=== PATIENT | female | born 1995 | race Caucasian/White ===

== ENCOUNTER 2024-05-17 14:31 | Inpatient (IN) | payer OTHER ==
[2024-05-17] MEDS ORDERED: Ondansetron PF 4 MG/2 ML Vial IVP PRN (14:40)
[2024-05-17] MEDS ORDERED: fentaNYL 50 mcg/mL 1 mL Vial SLOW IVP PRN (14:40)
[2024-05-17] MEDS ORDERED: Promethazine HCl 25 MG/ML VIAL IM PRN (14:40)
[2024-05-17] MEDS ORDERED: Misoprostol 200 MCG TAB PR PRN (14:40)
[2024-05-17] MEDS ORDERED: Tranexamic Acid 1,000 MG/10 ML VIAL IVP PRN (14:40)
[2024-05-17] MEDS ORDERED: Lidocaine 1% (PF) 30 ML VIAL SC PRN (14:40)
[2024-05-17] MEDS ORDERED: Ibuprofen 800 MG TAB PO PRN (14:40)
[2024-05-17] MEDS ORDERED: hydrALAZINE 20 MG/ML VIAL SLOW IVP PRN (14:40)
[2024-05-17] MEDS ORDERED: Carboprost 250 MCG/ML AMP IM PRN (14:40)
[2024-05-17] MEDS ORDERED: HYDROcodone/Acetaminophen 5/325 mg Tablet PO PRN (14:40)
[2024-05-17] MEDS ORDERED: Diphenoxylate HCl/Atropine Tablet PO PRN ×2 (14:40)
[2024-05-17] MEDS ORDERED: Oxytocin 30 units/NS 500 ML 500 ML IV SCH (14:45)
[2024-05-17 15:58] LABS: Hematocrit 32.6 % (34.9-44.5); Hemoglobin 11.5 g/dL (12.0-15.5); Mean Corpuscular HGB CONC 35.3 g/dL (32.0-36.0); Mean Corpuscular Hemoglobin 31.8 pg (27.0-33.0); Mean Corpuscular Volume 90.1 fL (81.6-98.3); Mean Platelet Volume 13.5 fL (7.4-10.4); Platelet Count 162 10x3/uL (150-450); RBC Distribution Width 12.8 % (11.5-14.5); Red Blood Cell (RBC) Count 3.62 10x6/uL (3.90-5.03); White Blood Cell (WBC) Count 10.4 10x3/uL (3.5-10.5)
[2024-05-17 16:10] LABS: ALT (SGPT) 103 U/L (8-55); AST (SGOT) 50 U/L (5-34); Albumin 2.8 g/dL (3.5-5.0); Alkaline Phosphatase 133 U/L (40-110); Anion Gap 13 mmol/L (10-20); BUN (Urea Nitrogen) 9 mg/dL (7.0-18.7); Bilirubin, Total 1.1 mg/dL (0.2-1.2); Calc. Creatinine Clearance 0 mL/min (70-130); Calcium 9.4 mg/dL (7.8-10.44); Carbon Dioxide 19 mmol/L (22-29); Chloride 108 mmol/L (98-107); Estimated GFR 120; Globulin 3.7 g/dL (2.4-3.5); Glucose 87 mg/dL (70-105); Potassium 3.7 mmol/L (3.5-5.1); Protein, Total 6.5 g/dL (6.0-8.3)
[2024-05-17 16:14] LABS: Sodium 136 mmol/L (136-145)
[2024-05-17 16:30] LABS: Syphilis Antibody Nonreactive (Nonreactive); Syphilis Antibody Index 0.04 S/CO (<1.00 Non-Reactive)
[2024-05-17 16:32] LABS: HBsAg Index 0.18 S/CO (0-0.99); Hep B Surf Ag - L&D Non-Reactive S/CO (NonReactive)
[2024-05-17 16:46] VITALS: BMI 35.5
[2024-05-17 17:33] LABS: Creatinine, Urine 95.88 mg/dL (47-110)
[2024-05-17] MEDS: Lactated Ringer's 1,000 ML IV SCH (19:34)
[2024-05-17] MEDS: Misoprostol 100 MCG TAB ONE (19:34)
[2024-05-17] MEDS: Misoprostol 100 MCG TAB VAG SCH (22:17)
[2024-05-18] MEDS ORDERED: Promethazine HCl 25 MG/ML VIAL IM PRN (00:19)
[2024-05-18] MEDS ORDERED: ePHEDrine Sulfate 50 MG/10 ML VIAL SLOW IVP PRN (00:19)
[2024-05-18] MEDS ORDERED: Lactated Ringer's 500 ML IV PRN (00:19)
[2024-05-18] MEDS ORDERED: Naloxone HCl 0.4 mg/ml Vial IVP PRN ×2 (00:19)
[2024-05-18] MEDS ORDERED: Moisturizing Cream (Eucerin) 113 GM JAR TOP PRN (00:19)
[2024-05-18] MEDS ORDERED: Ondansetron PF 4 MG/2 ML Vial IVP PRN (00:19)
[2024-05-18] MEDS ORDERED: diphenhydrAMINE 50 MG/ML VIAL IVP PRN (00:19)
[2024-05-18] MEDS: fentaNYL 2 mcg/Ropivacaine 0.2% Epidural 100 ML CADD EPIDURAL SCH (00:26)
[2024-05-18] MEDS ORDERED: Communication Order-Pharmacy FS SCH (00:30)
[2024-05-18 04:23] LABS: Hematocrit 29.8 % (34.9-44.5); Mean Corpuscular HGB CONC 33.6 g/dL (32.0-36.0); Mean Corpuscular Hemoglobin 30.5 pg (27.0-33.0); Mean Corpuscular Volume 90.9 fL (81.6-98.3); Mean Platelet Volume 12.7 fL (7.4-10.4); Platelet Count 149 10x3/uL (150-450); RBC Distribution Width 12.9 % (11.5-14.5); Red Blood Cell (RBC) Count 3.28 10x6/uL (3.90-5.03); White Blood Cell (WBC) Count 14.6 10x3/uL (3.5-10.5)
[2024-05-18 04:27] LABS: ALT (SGPT) 116 U/L (8-55); AST (SGOT) 62 U/L (5-34); Albumin 2.5 g/dL (3.5-5.0); Alkaline Phosphatase 123 U/L (40-110); Anion Gap 13 mmol/L (10-20); BUN (Urea Nitrogen) 10 mg/dL (7.0-18.7); Calc. Creatinine Clearance 155 mL/min (70-130); Calcium 8.7 mg/dL (7.8-10.44); Carbon Dioxide 19 mmol/L (22-29); Chloride 106 mmol/L (98-107); Estimated GFR 116; Globulin 3.3 g/dL (2.4-3.5); Glucose 93 mg/dL (70-105); Potassium 3.4 mmol/L (3.5-5.1); Protein, Total 5.8 g/dL (6.0-8.3); Sodium 135 mmol/L (136-145)
[2024-05-18] MEDS: Oxytocin 30 units/NS 500 ML 500 ML IV SCH (05:24)
[2024-05-18] MEDS ORDERED: Bupivacaine PF 0.5% 30 ML VIAL ONE (15:58)
[2024-05-18] MEDS ORDERED: Bupivacaine 0.25% HCL 30 ML VIAL ONE (15:58)
[2024-05-18] MEDS: fentaNYL/Ropivacaine Epidural 100 ML ONE (19:20)
[2024-05-18] MEDS: Calcium Carbonate 500 MG ChewTAB PO SCH (19:51)
[2024-05-18] MEDS: Ampicillin 2 GM in Sodium Chloride 0.9% 100 ML IVPB SCH (21:18)
[2024-05-18] MEDS: Acetaminophen 500 MG TAB PO SCH (21:25)
[2024-05-19] MEDS: fentaNYL/Ropivacaine Epidural 100 ML ONE (02:31)
[2024-05-19] MEDS: Acetaminophen 325 MG TAB PO PRN (04:22)
[2024-05-19] MEDS: Methylergonovine 0.2 MG/ML VIAL IM PRN (05:38)
[2024-05-19] MEDS: Oxytocin 30 units/NS 500 ML 500 ML IV SCH (06:26)
[2024-05-19] MEDS: Magnesium Sulfate 20 gm/500 ml 20 GM/500 ML BAG ONE (06:26)
[2024-05-19] MEDS ORDERED: Misoprostol 200 MCG TAB VAG PRN (06:43)
[2024-05-19] MEDS ORDERED: Lanolin Ointment 7 GM TUBE TOP PRN (06:43)
[2024-05-19] MEDS ORDERED: Oxytocin 30 units/NS 500 ML 500 ML IV SCH (06:43)
[2024-05-19] MEDS ORDERED: Promethazine HCl 25 MG/ML VIAL IM PRN (06:43)
[2024-05-19] MEDS ORDERED: Lorazepam 2 MG/ML VIAL SLOW IVP PRN (06:43)
[2024-05-19] MEDS ORDERED: Preparation H Ointment 28 GM TUBE PR PRN (06:43)
[2024-05-19] MEDS ORDERED: Calcium Gluc 4.6 MEQ/10 ML (100 MG/ML) SLOW IVP PRN (06:43)
[2024-05-19] MEDS ORDERED: Milk Of Magnesia 30 ML UDCUP PO PRN (06:43)
[2024-05-19] MEDS ORDERED: hydrALAZINE 20 MG/ML VIAL SLOW IVP PRN ×3 (06:43)
[2024-05-19] MEDS ORDERED: Ondansetron PF 4 MG/2 ML Vial IVP PRN (06:43)
[2024-05-19] MEDS ORDERED: Bisacodyl 10 MG SUPP PR PRN (06:43)
[2024-05-19] MEDS ORDERED: diphenhydrAMINE 25 MG CAP PO PRN (06:43)
[2024-05-19] MEDS ORDERED: Benzocaine-Menthol 82.5 ML CAN TOP PRN (06:43)
[2024-05-19] MEDS: Ferrous Sulfate 325 MG TAB PO SCH (09:04)
[2024-05-19] MEDS: Ibuprofen 800 MG TAB PO SCH (09:04)
[2024-05-19] MEDS: Docusate 100 MG CAP PO SCH (09:05)
[2024-05-19] MEDS: Prenatal Vitamin 1 TAB PO SCH (09:05)
[2024-05-19 09:12] LABS: Hematocrit 30.9 % (34.9-44.5); Platelet Count 142 10x3/uL (150-450)
[2024-05-19 09:30] LABS: ALT (SGPT) 108 U/L (8-55); AST (SGOT) 56 U/L (5-34); Albumin 2.1 g/dL (3.5-5.0); Alkaline Phosphatase 117 U/L (40-110); Anion Gap 16 mmol/L (10-20); BUN (Urea Nitrogen) 12 mg/dL (7.0-18.7); Bilirubin, Total 1.7 mg/dL (0.2-1.2); Calc. Creatinine Clearance 103 mL/min (70-130); Calcium 8.8 mg/dL (7.8-10.44); Carbon Dioxide 15 mmol/L (22-29); Chloride 109 mmol/L (98-107); Estimated GFR 71; Globulin 3.2 g/dL (2.4-3.5); Glucose 110 mg/dL (70-105); Potassium 3.2 mmol/L (3.5-5.1); Protein, Total 5.3 g/dL (6.0-8.3); Sodium 137 mmol/L (136-145)
[2024-05-19] MEDS: Potassium Chloride 20 MEQ TAB PO SCH (13:14)
[2024-05-19] MEDS: Magnesium Sulfate 20 gm/500 ml 20 GM/500 ML BAG IVPB SCH (14:59)
[2024-05-19] MEDS: Potassium Bicarbonate/Cit Ac 20 MEQ TAB PO SCH (16:45)
[2024-05-20 04:04] LABS: #Basophils 0.06 10x3/uL (0.0-0.2); #Eosinphils 0.12 10x3/uL (0.0-0.5); #Monocytes 0.64 10x3/uL (0.0-1.1); #Neutrophils 20.02 10x3/uL (1.5-8.4); %Basophils 0.3 % (0.0-2.0); %Eosinophils 0.5 % (0.0-6.0); %Lymphocytes 8.8 % (18.0-47.0); %Monocytes 2.8 % (0.0-10.0); %Neutrophils 86.6 % (40.0-75.0); Hematocrit 28.7 % (34.9-44.5); Mean Corpuscular HGB CONC 34.8 g/dL (32.0-36.0); Mean Corpuscular Hemoglobin 31.3 pg (27.0-33.0); Mean Platelet Volume 12.8 fL (7.4-10.4); Platelet Count 162 10x3/uL (150-450); RBC Distribution Width 13.2 % (11.5-14.5); Red Blood Cell (RBC) Count 3.19 10x6/uL (3.90-5.03); White Blood Cell (WBC) Count 23.1 10x3/uL (3.5-10.5)
[2024-05-20 04:07] LABS: ALT (SGPT) 80 U/L (8-55); AST (SGOT) 29 U/L (5-34); Alkaline Phosphatase 98 U/L (40-110); Anion Gap 12 mmol/L (10-20); BUN (Urea Nitrogen) 9 mg/dL (7.0-18.7); Bilirubin, Total 0.8 mg/dL (0.2-1.2); Calc. Creatinine Clearance 135 mL/min (70-130); Calcium 8.7 mg/dL (7.8-10.44); Carbon Dioxide 22 mmol/L (22-29); Chloride 106 mmol/L (98-107); Estimated GFR 98; Globulin 3.3 g/dL (2.4-3.5); Glucose 104 mg/dL (70-105); Potassium 3.5 mmol/L (3.5-5.1); Protein, Total 5.3 g/dL (6.0-8.3); Sodium 136 mmol/L (136-145)
[2024-05-20] MEDS: Boostrix 0.5 ML (Tdap) VIAL (>/=7 yrs of age) IM ONE (07:38)
[2024-05-21] MEDS: Ibuprofen 800 MG TAB PO SCH (02:57)
[2024-05-21 03:43] LABS: Hematocrit 27.1 % (34.9-44.5); Hemoglobin 9.3 g/dL (12.0-15.5); Mean Corpuscular HGB CONC 34.3 g/dL (32.0-36.0); Mean Corpuscular Hemoglobin 31.6 pg (27.0-33.0); Mean Corpuscular Volume 92.2 fL (81.6-98.3); Mean Platelet Volume 12.2 fL (7.4-10.4); Platelet Count 163 10x3/uL (150-450); RBC Distribution Width 13.2 % (11.5-14.5); Red Blood Cell (RBC) Count 2.94 10x6/uL (3.90-5.03); White Blood Cell (WBC) Count 15.4 10x3/uL (3.5-10.5)
[2024-05-21 04:05] LABS: ALT (SGPT) 56 U/L (8-55); AST (SGOT) 20 U/L (5-34); Alkaline Phosphatase 95 U/L (40-110); Anion Gap 16 mmol/L (10-20); BUN (Urea Nitrogen) 11 mg/dL (7.0-18.7); Bilirubin, Total 0.6 mg/dL (0.2-1.2); Calc. Creatinine Clearance 127 mL/min (70-130); Calcium 8.8 mg/dL (7.8-10.44); Carbon Dioxide 20 mmol/L (22-29); Chloride 107 mmol/L (98-107); Estimated GFR 91; Globulin 3.4 g/dL (2.4-3.5); Glucose 89 mg/dL (70-105); Potassium 3.7 mmol/L (3.5-5.1); Protein, Total 5.4 g/dL (6.0-8.3); Sodium 139 mmol/L (136-145)
[2024-05-22 05:47] LABS: Albumin 2.2 g/dL (3.5-5.0); Anion Gap 14 mmol/L (10-20); BUN (Urea Nitrogen) 11 mg/dL (7.0-18.7); Bilirubin, Total 0.6 mg/dL (0.2-1.2); Calc. Creatinine Clearance 133 mL/min (70-130); Calcium 8.8 mg/dL (7.8-10.44); Carbon Dioxide 22 mmol/L (22-29); Chloride 108 mmol/L (98-107); Estimated GFR 96; Globulin 3.4 g/dL (2.4-3.5); Glucose 86 mg/dL (70-105); Potassium 4.3 mmol/L (3.5-5.1); Protein, Total 5.6 g/dL (6.0-8.3); Sodium 140 mmol/L (136-145)
[2024-05-22 05:48] LABS: ALT (SGPT) 64 U/L (8-55); AST (SGOT) 39 U/L (5-34); Alkaline Phosphatase 91 U/L (40-110)
[2024-05-22] MEDS: NIFEdipine XL 30 MG ER.TAB PO SCH (07:59)
[2024-05-22] MEDS: Labetalol HCl 100 MG TAB PO SCH ×2 (13:05→20:59)
[2024-05-23] MEDS: NIFEdipine XL 30 MG ER.TAB PO SCH (08:41)
[2024-05-23] MEDS ORDERED: NIFEdipine XL 30 MG ER.TAB PO SCH (09:00)
[2024-05-23 11:38] VITALS: BP 115/64; TEMP 97.7
== END 2024-05-23 12:50 | disposition home or self-care (01) | DRG 805 ==
LOC: CSHLD 14:31 → CSHPP 05-20 06:40
PROVIDERS: ADMIT Family Medicine; ATTEND Family Medicine
PROC: 3E0P7VZ Introduction of Hormone into Female Reproductive, Via Natural or Artificial Opening (ICD-10-PCS; 2024-05-17)
PROC: 10E0XZZ Delivery of Products of Conception, External Approach (ICD-10-PCS; principal; 2024-05-19)
PROC: 0KQM0ZZ Repair Perineum Muscle, Open Approach (ICD-10-PCS; 2024-05-19)
PROC: 0UQMXZZ Repair Vulva, External Approach (ICD-10-PCS; 2024-05-19)
PROC: 3E033XZ Introduction of Vasopressor into Peripheral Vein, Percutaneous Approach (ICD-10-PCS; 2024-05-19)
DX: O26.643 Intrahepatic cholestasis of pregnancy, third trimester (principal); O41.1230 Chorioamnionitis, third trimester, not applicable or unspecified; Z37.0 Single live birth; Z3A.39 39 weeks gestation of pregnancy; O99.02 Anemia complicating childbirth; O76 Abnormality in fetal heart rate and rhythm complicating labor and delivery; O14.14 Severe pre-eclampsia complicating childbirth; O70.1 Second degree perineal laceration during delivery
CPT/HCPCS: 36415; 51701; 51702; 80053; 82570; 83615; 84156; 85014; 85018; 85025; 85027; 85049; 86780; 86850; 86900; 86901; 87340; 88307; J0290; J0665; J1580; J2210; J2590; J3475; J3490; J7120